=== PATIENT | male | born 1960 | race Caucasian/White ===

== ENCOUNTER 2017-04-18 00:36 | Emergency (ER) | payer SELFPAY | END 2017-04-18 02:44 | disposition left against medical advice (07) | LOC: E/R 00:36 | DX: Z53.21 Procedure and treatment not carried out due to patient leaving prior to being seen by health care provider (principal) ==

== ENCOUNTER 2017-04-18 03:34 | Emergency (ER) | payer OTHER ==
[2017-04-18] MEDS: LORAZEPAM 1 MG TAB PO (06:38)
== END 2017-04-18 07:36 | disposition home or self-care (01) ==
LOC: FTE 03:34
DX: F41.9 Anxiety disorder, unspecified (principal); F17.210 Nicotine dependence, cigarettes, uncomplicated
CPT/HCPCS: 99283; Z7502